=== PATIENT | female | born 1990 ===

== ENCOUNTER 2020-09-23 22:02 | Emergency (ER) | payer SELFPAY ==
[~2020-09-23] VITALS: Ht 165.1 cm; Wt 115.0 kg
[2020-09-23] MEDS ORDERED: CLINDAMYCIN 300 MG CAPSULE ONE (22:40)
--- NOTE | 2020-09-23 22:43 | NUR ---
Scanner on computer would not work. Signed in meds. Cleocin given.
[2020-09-23] MEDS ORDERED: CLINDAMYCIN 300 MG CAPSULE PO ONE (23:00)
[2020-09-23 23:01] VITALS: BP 147/78
== END 2020-09-23 23:03 | disposition home or self-care (01) ==
LOC: ED 23:00
DX: K05.229 Aggressive periodontitis, generalized, unspecified severity (principal); K02.9 Dental caries, unspecified
CPT/HCPCS: 99283